=== PATIENT | male | born 1985 ===

== ENCOUNTER 2016-10-30 21:07 | Emergency (ER) | payer BC ==
[2016-10-30] MEDS ORDERED: Acetaminop/Codeine 30 MG TAB* 1 TAB (300 MG/30 MG) PO ONE (22:17)
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
== END 2016-10-30 22:40 | disposition home or self-care (01) ==
LOC: UCEAST 21:07
DX: L55.9 Sunburn, unspecified (principal)
CPT/HCPCS: 99202; A9270-GY; G0463